=== PATIENT | male | born 1985 | race Caucasian/White ===

== ENCOUNTER 2023-03-05 15:04 | Emergency (ER) | payer SELFPAY ==
[~2023-03-05] VITALS: Ht 182.9 cm; Wt 122.7 kg
[~2023-03-05 15:04] MED LIST: ASPI-1 PO; PERC5TAB12 PO
[2023-03-05 15:18] VITALS: TEMP 97.7; O2SAT 97
[2023-03-05] MEDS ORDERED: KETOROLAC 30 MG/ML 1ML VIAL IV ONE (15:25)
[2023-03-05] MEDS ORDERED: diazePAM 10MG/2ML SYRINGE IV ONE (15:25)
[2023-03-05 15:28] VITALS: BP 148/84
[2023-03-05] MEDS ORDERED: PERC5TAB12 PO ×2 (16:52→16:57)
== END 2023-03-05 18:01 | disposition left against medical advice (07) ==
LOC: M ED 15:04
DX: S32.019A Unspecified fracture of first lumbar vertebra, initial encounter for closed fracture (principal); W09.1XXA Fall from playground swing, initial encounter; Y92.89 Other specified places as the place of occurrence of the external cause; Y93.89 Activity, other specified; Y99.8 Other external cause status; Z87.442 Personal history of urinary calculi; F17.210 Nicotine dependence, cigarettes, uncomplicated
CPT/HCPCS: 72131; 96374; 96375; 99283; J1885; J3360